=== PATIENT | male | born 1955 | race Caucasian/White ===

== ENCOUNTER 2019-06-17 07:32 | Day surgery (SDC) | payer MEDICARE, MEDICAID ==
[2019-06-17] MEDS ORDERED: Propofol 200 MG/20 ML SDV IV ONE (07:33)
[2019-06-17] MEDS ORDERED: Midazolam 1 MG/ML 2 ML SDV IV ONE (07:33)
[2019-06-17] MEDS ORDERED: Lactated Ringers 1,000 ML IV SCH (07:45)
--- NOTE | 2019-06-17 09:25 | PCM.OPNOTE ---
- General Post-Op/Procedure Note Date of Surgery/Procedure: 06/17/19 Operative Procedure(s): c scope with bx Findings: ascending colon polyp Pre Op Diagnosis: hx of polyps. hx of diarrhea Post-Op Diagnosis: colon polyp Anesthesia Technique: MAC (s) Primary Surgeon: Nic Viveros Anesthesia Provider: Prisca Da Silva Pathology: polyp Complications: None Condition: Good Free Text/Narrative:: see dictation
[2019-06-17 09:38] VITALS: BP 111/73; PULSE 62
--- NOTE | 2019-06-17 11:55 | OR ---
DATE OF OPERATION: 06/17/2019 SURGEON: Nic Viveros MD PROCEDURES PERFORMED: Colonoscopy, cold forceps biopsy. PREOPERATIVE DIAGNOSIS: History of diarrhea and colon polyps. POSTOPERATIVE DIAGNOSIS: Ascending colon polyp. INDICATIONS FOR PROCEDURE: This is a 63-year-old white male who has a history of diarrhea, 5 to 6 loose stools a day. He also has a personal history of colon polyps and has recently experienced night sweats and weight loss. Workup to date has been negative for an etiology. He was offered and accepted a colonoscopy. DESCRIPTION OF OPERATION: After an excellent IV sedation was administered, digital rectal exam was performed. No marked abnormality was noted. Flexible colonoscope was inserted and advanced to the cecum without difficulty. Prep was excellent. The following findings were noted. Ascending colon, a small polyp, biopsied, and submitted for permanent. Random biopsies were also taken. Transverse colon, unremarkable. Random biopsies were taken. Descending colon, unremarkable. Random biopsies were taken. Sigmoid and rectum, unremarkable. Random biopsies were taken. The patient tolerated the procedure well. He will receive results by letter. /[id number] /MODL
== END 2019-06-17 10:07 | disposition home or self-care (01) ==
LOC: FB.SDS 07:32
PROVIDERS: ATTEND Surgery
DX: D12.2 Benign neoplasm of ascending colon (principal); R51 Headache; F32.9 Major depressive disorder, single episode, unspecified; Z86.010 Personal history of colon polyps; Z86.19 Personal history of other infectious and parasitic diseases; Z79.899 Other long term (current) drug therapy; Z88.5 Allergy status to narcotic agent
CPT/HCPCS: 00811; 45380; 88305; J2250; J2704; J7120